=== PATIENT | female | born 1980 ===

== ENCOUNTER 2018-09-09 09:12 | Inpatient (IN) | payer SELFPAY ==
[2018-09-09 10:18] LABS: HEMATOCRIT 34.3 % (36.0-47.0); HEMOGLOBIN 11.7 g/dl (12.0-15.5); MEAN CORPUSCULAR HEMOGLOBIN 29.8 pg (27.0-33.0); MEAN CORPUSCULAR HGB CONC 34.1 g/dl (32.0-36.5); MEAN CORPUSCULAR VOLUME 87.5 fl (80.0-96.0); PLATELET COUNT, AUTOMATED 205 10^3/uL (150-450); RED BLOOD COUNT 3.92 10^6/uL (4.00-5.40); RED CELL DISTRIBUTION WIDTH 13.1 % (11.5-14.5)
[2018-09-09] MEDS: PENICILLIN G POTASSIUM IV 5 MU in D5W MINI-BAG PLUS 100 ML IV (10:27)
[2018-09-09 10:45] LABS: CONTROL LINE INT CTR LINE PRESENT; HIV SCRN NEGATIVE (NEGATIVE); HIV SCRN1 NEGATIVE (NEGATIVE)
[2018-09-09 11:01] LABS: HBSAG L&D NEGATIVE (NEGATIVE)
[2018-09-09] MEDS: PENICILLIN G POTASSIUM IV 2.5 MU in APPROPRIATE DILUENT 1 EA IV ×3 (14:43→22:50)
[2018-09-09 15:07] LABS: ALT/SGPT 21 U/L (12-78); AST/SGOT 19 U/L (7-37); BILIRUBIN,TOTAL 0.7 MG/DL (0.2-1.0); CREATININE FOR GFR 0.44 MG/DL (0.55-1.30); GLOMERULAR FILTRATION RATE > 60.0 (>60); LDH LACTATE DEHYDROGENASE 233 U/L (84-246); URIC ACID 3.3 MG/DL (2.6-6.0)
[2018-09-09] MEDS: OXYTOCIN DRIP 30 UNITS in APPROPRIATE DILUENT 1 EA IV (15:45)
[2018-09-09] MEDS: PROMETHAZINE INJ 25 MG/ML VIAL (J2550) IV (15:46)
[2018-09-09] MEDS: BUTORPHANOL 2 MG/ML INJ (J0595) IV (15:46)
[2018-09-09] MEDS: LR 1,000 ML IV ×2 (15:46→18:44)
[2018-09-10] MEDS: OXYTOCIN DRIP 30 UNITS in APPROPRIATE DILUENT 1 EA IV (02:28)
[2018-09-10] MEDS ORDERED: DOCUSATE SODIUM 100 MG CAP PO (02:30)
[2018-09-10] MEDS: LIDOCAINE 1% MDV 20ML VIAL INFIL (02:30)
[2018-09-10] MEDS ORDERED: DIBUCAINE 1% OINTMENT 30GM TOP (02:30)
[2018-09-10] MEDS ORDERED: METHYLERGONOVINE MALEATE 0.2 MG TAB PO (02:30)
[2018-09-10] MEDS ORDERED: ACETAMINOPHEN 500 MG TAB PO (02:30)
[2018-09-10] MEDS ORDERED: ANUSOL HC CREAM 30GM TOP (02:30)
[2018-09-10] MEDS: IBUPROFEN 800 MG TAB PO (04:08)
[2018-09-10] MEDS: PRENATAL VITAMINS CHEWABLE TABLET PO (08:50)
[2018-09-10 10:07] LABS: FETAL SCREEN PROF. 1 1
[2018-09-10] MEDS: RHOGAM 300 MCG (1500 IU) INJ (J2790) IM (11:24)
[2018-09-10 14:39] LABS: RUBELLA IgG QUALITATIVE IMMUNE (IMMUNE)
[2018-09-11] MEDS: MEASLES,MUMPS,RUBELLA VACCINE INJ (MMR-II) (90707) SC (07:18)
[2018-09-11] MEDS: PRENATAL VITAMINS CHEWABLE TABLET PO (08:26)
== END 2018-09-11 12:05 | disposition home or self-care (01) | DRG 560 ==
LOC: M LDO 09:12 → M OBS 09-10 04:20 → M LDI 09:20
PROC: 10E0XZZ Delivery of Products of Conception, External Approach (ICD-10-PCS; principal; 2018-09-10)
PROC: 0KQM0ZZ Repair Perineum Muscle, Open Approach (ICD-10-PCS; 2018-09-10)
DX: O99.824 Streptococcus B carrier state complicating childbirth (principal); Z37.0 Single live birth; Z3A.36 36 weeks gestation of pregnancy; O70.1 Second degree perineal laceration during delivery